=== PATIENT | male | born 1955 | race Caucasian/White ===

== ENCOUNTER → 2018-02-02 | Outpatient (CLI) | payer BC ==
[~2018-02-02] MED LIST: ASPI325; CENTRUM SILVER1 EAC2 PO; HYDACE7.5; HYDMOR2 PO; IBUP600; NAUSEA MED; ONDA4 PO; Stool Softener100 MG; TAMS.4ER PO
== END | disposition home or self-care (01) ==
LOC: LAB EV 16:25 → LAB SHORT 16:25
DX: R35.0 Frequency of micturition (principal)
CPT/HCPCS: 87086

== ENCOUNTER → 2019-07-03 | Outpatient (CLI) | payer OTHER | END | disposition home or self-care (01) | LOC: LAB SHORT 12:39 → LAB EV 12:39 | DX: R31.9 Hematuria, unspecified (principal) | CPT/HCPCS: 87086 ==

== ENCOUNTER → 2019-11-03 | Outpatient (CLI) | payer OTHER | END | disposition home or self-care (01) | LOC: LAB EV 15:30 | DX: K21.9 Gastro-esophageal reflux disease without esophagitis (principal) | CPT/HCPCS: 87338 ==

== ENCOUNTER 2020-04-27 09:17 | Day surgery (SDC) | payer OTHER ==
[~2020-04-27] VITALS: Ht 177.8 cm; Wt 67.7 kg
--- NOTE | 2020-04-27 09:42 | NUR ---
History, Chart, Medications and Allergies reviewed before start of procedure. Patient states colon prep results clear. Patient States Post-Procedure ride home has been arranged.
--- NOTE | 2020-04-27 10:08 | NUR ---
04/27/20 1008 [address]ukas PATIENT DETERMINED TO BE ASA APPROPRIATE FOR PROPOFOL SEDATION PRIOR TO START OF PROCEDURE BY 3-LEAD EKG REVIEWED WITH PHYSICIAN PRIOR TO START OF PROCEDURE. Patient to ENDO 1 History, Chart, Medications and Allergies reviewed before start of procedure. MONITOR INTACT WITH CONTINUOUS PULSE OXIMETRY AND INTERMITTENT BP. O2 VIA N/C INTACT THROUGHOUT SEDATION/PROCEDURE.
--- NOTE | 2020-04-27 11:09 | NUR ---
Patient up to Ambulate independently. Gait steady. Discharge instructions reviewed with patient. Patient verbalizes understanding. Copy given to patient to take home. Discharged via wheelchair to private car for ride homewith
== END 2020-04-27 23:07 | disposition home or self-care (01) ==
LOC: ORSCMMR 09:17 → ORD 10:00 → ORSCMMR 10:00
PROVIDERS: Internal Medicine Gastroenterology
PROC: 0DBM8ZX Excision of Descending Colon, Via Natural or Artificial Opening Endoscopic, Diagnostic (ICD-10-PCS; principal; 2020-04-27 10:00)
DX: Z12.11 Encounter for screening for malignant neoplasm of colon (principal); K57.30 Diverticulosis of large intestine without perforation or abscess without bleeding; F17.210 Nicotine dependence, cigarettes, uncomplicated
CPT/HCPCS: 88305; J2704; J7120

== ENCOUNTER 2021-10-18 08:03 | Day surgery (SDC) | payer MEDICARE ==
--- NOTE | 2021-10-18 09:43 | NUR ---
PATIENT ARRIVES TO INTERNAL WAITING ROOM AT 0830. QUESTIONAIRRE COMPLETED, VSS STABLE. THIS RN MADE 2 IV ATTEMPTS WITH FAILED PATENCY. CALL TO DAY SURGERY RN WHO MADE 2 IV ATTEMPTS WITH SUCCESS ON SECOND ATTEMPT. PT WHEELED TO CT VIA MonitorNEY WITH HR NOTED TO BE 47, SINUS GENEVIEVE ON MONITOR. PT'S BP PRIOR TO CONTRAST ELEVATED, ORAL NITRO GIVEN PER ORDERS. SEE PAPER CHART. CT COMPLETED AND PT WHEELED BACK TO INTERNAL WAITING ROOM. BP WITH PT SITTING UP WAS 117/81. PT DENIED DIZZINESS OR SPOTTING IN EYES. IV DC'D WNL. ESCORTED TO RESTROOM THEN TO EXTERNAL WAITING ROOM. AMBULATES WITHOUT DIFFICULTY, STATES HE DOES NOT FEEL LIGHT HEADED. INSTRUCTED TO DRINK PLENTY OF WATER AND TO REPORT DIZZINESS OR CHEST PAIN.
== END 2021-10-18 23:32 | disposition home or self-care (01) ==
LOC: CT 08:03 → ORD 08:30 → ORSCMMR 08:30 → CT 09:00
DX: R07.9 Chest pain, unspecified (principal)
CPT/HCPCS: 75574; Q9967

== ENCOUNTER → 2022-07-21 | Outpatient (CLI) | payer MEDICARE | END | disposition home or self-care (01) | LOC: LAB SHORT 11:25 → PLD 11:25 | DX: L83 Acanthosis nigricans (principal) | CPT/HCPCS: 88305 ==

== ENCOUNTER 2024-01-27 11:01 | Emergency (ER) | payer MEDICARE ==
[~2024-01-27] VITALS: Ht 175.3 cm; Wt 64.0 kg
[2024-01-27] MEDS ORDERED: Lidocaine 2% Jelly Uro-Jet UR ONE (13:15)
[2024-01-27] MEDS ORDERED: PRAV20 PO (13:25)
[2024-01-27] MEDS ORDERED: ELIQUIS5 M3 PO (13:25)
[2024-01-27] MEDS ORDERED: Amiodarone HCl200 MG PO (13:25)
[2024-01-27] MEDS ORDERED: METOPROLOL TART25 MG PO (13:25)
[2024-01-27] MEDS ORDERED: KLOR-CON 1010 ME9 PO (13:25)
[2024-01-27] MEDS ORDERED: FERSU300 PO (13:26)
[2024-01-27 13:45] VITALS: BP 120/72
== END 2024-01-27 14:38 | disposition home or self-care (01) ==
LOC: ER 11:01
DX: T83.031A Leakage of indwelling urethral catheter, initial encounter (principal); F17.200 Nicotine dependence, unspecified, uncomplicated; Z79.899 Other long term (current) drug therapy
CPT/HCPCS: 51702; 99283-25

== ENCOUNTER 2024-01-30 09:07 | Emergency (ER) | payer MEDICARE ==
[~2024-01-30] VITALS: Ht 175.3 cm; Wt 66.7 kg
[~2024-01-30 09:07] MED LIST changes: +Amiodarone HCl200 MG PO; +ELIQUIS5 M3 PO; +FERSU300 PO; +KLOR-CON 1010 ME9 PO; +METOPROLOL TART25 MG PO; +PRAV20 PO
[2024-01-30 09:32] VITALS: BP 115/94
[2024-01-30 11:29] LABS: Source, Urine Foley catheter
[2024-01-30 11:41] LABS: Bilirubin, Urine Neg (Neg); Blood, Urine 5+ (Neg); Glucose Qualitative, Urine Neg (Neg); Ketones, Urine Neg (Neg); Leukocyte Esterase, Urine 3+ (Neg); Nitrite, Urine Neg (Neg); Protein, Urine 4+ (Neg); Urobilinogen, Urine NORM (Normal)
[2024-01-30 12:07] LABS: Appearance, Urine Hazy (Clear); Color, Urine Yellow (P-Yellow)
[2024-01-30 12:09] LABS: Bacteria Many /hpf; Red Blood Cells, Urine TNTC /hpf (0-2); Squamous Epithelial Cells Not Seen /hpf (Few); White Blood Cells, Urine TNTC /hpf (0-5)
[2024-01-30] MEDS ORDERED: SULTRIDS PO (12:27)
== END 2024-01-30 12:40 | disposition home or self-care (01) ==
LOC: ER 09:07
PROVIDERS: Physician Assistant
DX: T83.511A Infection and inflammatory reaction due to indwelling urethral catheter, initial encounter (principal); N39.0 Urinary tract infection, site not specified; F17.200 Nicotine dependence, unspecified, uncomplicated; Z79.899 Other long term (current) drug therapy
CPT/HCPCS: 51702; 51798; 81001; 87086; 99283-25